=== PATIENT | female | born 1940 | race Caucasian/White ===

== ENCOUNTER 2016-07-27 13:33 | Inpatient (IN) | payer OTHER, MEDICARE ==
[~2016-07-27] VITALS: Ht 154.9 cm; Wt 64.6 kg
[2016-08-09] MEDS ORDERED: SENN8.6T19 PO (14:50)
[2016-08-09] MEDS ORDERED: OMEP40CA2 PO (14:50)
[2016-08-09] MEDS ORDERED: FLUT1INH INH (14:50)
[2016-08-09] MEDS ORDERED: SERT-129 PO (14:50)
[2016-08-09] MEDS ORDERED: VITA100T15 PO (14:50)
[2016-08-09] MEDS ORDERED: LOSA50TA2 PO (14:50)
[2016-08-09] MEDS ORDERED: IPRASOL INH (14:50)
[2016-08-09] MEDS ORDERED: DOXA1TAB35 PO (14:50)
[2016-08-09] MEDS ORDERED: LEVO125T4 PO (14:50)
[2016-08-09] MEDS ORDERED: HYDR-3516 PO (14:50)
[2016-08-09] MEDS ORDERED: CALC1TAB42 PO (14:50)
[2016-08-16 14:10] VITALS: BP 132/63; PULSE 57; RESP 12; TEMP 95.5; O2SAT 98
--- NOTE | 2016-08-17 05:11 | MH ---
cc: GAEL STEWART M.D. Corrected Copy: 08/18/16 DATE OF ADMISSION: 08/17/2016 ADMISSION DIAGNOSIS Left knee osteoarthritis. HISTORY This patient is a 76-year-old female with significant left knee pain. Investigative studies show evidence of extensive arthritis left knee. Despite conservative care the patient is painful and symptomatic. This patient presents for surgical treatment. PAST MEDICAL HISTORY, SOCIAL HISTORY, FAMILY HISTORY, REVIEW OF SYSTEMS See attached notes. PHYSICAL EXAMINATION GENERAL: A 76-year-old female in moderate distress with her left knee. HEENT: Normocephalic, atraumatic. Pupils equal, round, reactive to light and accommodation. Extraocular motions intact. NECK: Supple. CHEST: Clear. HEART: Regular rate and rhythm. ABDOMEN: Soft, nontender with normoactive bowel sounds. MUSCULOSKELETAL EXAMINATION: Left knee pain with range of motion. Mild deformity. Crepitus with range of motion. NEUROLOGIC AND VASCULAR EXAMINATION: Within normal limits. IMPRESSION Osteoarthritis left knee. PLAN Left total knee replacement arthroplasty. CONSENT There are risks with surgery including infection, bleeding, loss of motion, continued pain, need for further surgery, neurologic and vascular injury. The patient understands these issues and wishes to press on with the surgery as outlined above. Gael Stewart MD MCG/SSB /10:46 PM /2:20 PM
[2016-08-17] MEDS ORDERED: EXPAREL PERI-ARTICULAR INJECTION (TOTAL VOL. 60 ML) P-ARTICULR SCH ×2 (07:15)
[2016-08-17] MEDS ORDERED: ceFAZolin 2 GM PREMIX 50 ML IV SCH (07:15)
[2016-08-17] MEDS ORDERED: INSULIN HUMAN REGULAR 1,000 UNITS/10 ML VIAL SQ PRN (07:30)
[2016-08-17] MEDS ORDERED: LACTATED RINGER'S 1000 ML IV SCH (07:30)
[2016-08-17] MEDS ORDERED: SODIUM CHLORID 0.9% 500 ML IV SCH (07:30)
[2016-08-17] MEDS ORDERED: METOPROLOL TARTRATE 25 MG TAB PO PRN (07:30)
[2016-08-17] MEDS: POVIDONE IODINE 7.5% SCRUB 118 ML BOTTLE TOPICAL SCH (07:35)
[2016-08-17 07:41] VITALS: BP 148/63; PULSE 54; RESP 18; TEMP 97.9; O2SAT 98
[2016-08-17 07:44] LABS: APTT (PATIENT) 24.9 SEC (24.3-30.1); PROTHROMBIN TIME - PATIENT 10.6 SEC (9.8-11.6)
[2016-08-17] MEDS: VANCOMYCIN 1000 MG/NS 250 ML (for <70 kg) IV SCH ×4 (07:48→07:56)
[2016-08-17] MEDS ORDERED: BUPIVACAINE LIPOSOME PF 1.3% 20 ML VIAL NERV BLOCK ONE (07:55)
[2016-08-17] MEDS ORDERED: FAMOTIDINE 20 MG/2 ML VIAL ONE (08:13)
[2016-08-17] MEDS ORDERED: MIDAZOLAM HCL 5 MG/5 ML VIAL ONE (08:14)
[2016-08-17] MEDS ORDERED: ACETAMINOPHEN 1000 MG/100 ML VIAL IV ONE (08:14)
[2016-08-17] MEDS ORDERED: fentaNYL CITRATE 250 MCG/5 ML AMP ONE (08:14)
[2016-08-17] MEDS ORDERED: ceFAZolin INJ 1,000 MG VIAL ONE (08:36)
[2016-08-17] MEDS ORDERED: GENTAMICIN SULFATE 80 MG/2 ML VIAL ONE (08:41)
[2016-08-17] MEDS: SODIUM CHLORIDE 0.9% IV SCH ×2 (09:48→12:53)
[2016-08-17] MEDS: TRANEXAMIC ACID IV SCH ×2 (09:48→12:53)
[2016-08-17] MEDS: LACTATED RINGER'S 1000 ML INJ 1,000 ML IV SCH (11:25)
[2016-08-17] MEDS ORDERED: Post-op Orders (for Pharmacy) MISC XX ONE (11:30)
[2016-08-17] MEDS ORDERED: TRANEXAMIC ACID INJ 650 MG in SODIUM CHLORIDE 0.9% INJ 100 ML IV SCH (11:30)
[2016-08-17] MEDS ORDERED: MORPHINE SULFATE 8 MG/ML INJ IM PRN (11:30)
[2016-08-17] MEDS ORDERED: MISCELLANEOUS PHARMACY INFORMATION XX ONE (11:30)
[2016-08-17] MEDS ORDERED: NALOXONE HCL 0.4 MG/ML AMP IV PRN (11:30)
[2016-08-17] MEDS ORDERED: SODIUM CHLORIDE 0.9% FLUSH 5 ML FLUSH IVF PRN (11:30)
[2016-08-17] MEDS ORDERED: MORPHINE SULFATE 30 MG/30 ML PCA IV SCH (11:30)
[2016-08-17] MEDS ORDERED: TEMAZEPAM 15 MG CAP PO PRN (11:30)
[2016-08-17] MEDS ORDERED: MISCELLANEOUS NURSING INFORMATION XX PRN (11:30)
--- NOTE | 2016-08-17 11:32 | PD.OP ---
cc: Mark Rodriguez MD Operative Report Date of Surgery: Aug 17, 2016 Preoperative Diagnosis: Osteoarthritis left knee Postoperative Diagnosis: Same Procedure: Left total knee replacement arthroplasty Anesthesia: Gen. Surgeon: Mark Rodriguez Ocean Fishing Guide(s): DAVID Kapadia Operation and Findings: EBL: 100 cc INDICATION: This patient presents with long-standing arthritis of the knee. Attachment record documents conservative measures. The patient now presents for surgical treatment. NOTE: Leydi Kapadia PA-C was present for the entire surgical procedure as my or first assist registered nurse. In my medical opinion her skill and care was necessary for proper management of this patient. TOURNIQUET TIME: 50 minutes COMPANY: [employer] FEMUR: Size 2, posterior cruciate retaining TIBIA: Size 2, fixed bearing PATELLA: 32 mm POLYETHYLENE INSERT: 11 mm PROCEDURE: This patient was brought the operating room and anesthetized in the supine position. The patient was positioned supine on the table. The tourniquet was placed about the thigh, and the leg was scrubbed with alcohol followed by Hibiclens followed by ChloraPrep and draped sterilely. A timeout was done, and antibiotics were given. After exsanguination the tourniquet was inflated to 250 mmHg. An anterior incision was made and a median parapatellar arthrotomy was performed. The patella was released laterally and subluxed allowing freehand cut of the patella which was then sized. A metal cap was placed over the exposed patellar surface for protection. A pilot boat operator hole was placed in the distal femur allowing a 5 valgus cut removing 10 mm from the distal femur. Anterior posterior and chamfer cuts were made. The posterior stabilize osteotomy was made. The attention was directed to the tibia. Retractors were positioned. The external alignment guide was used allowing the lateral tibia to be used as referencing guide and cut utilizing an oscillating saw taking care to avoid any injury to the surrounding soft tissues. This was sized properly. Trial reduction showed that the insert fit nicely. The patient had range of motion extension 0 flexion 125. A medial release was not necessary. The bony surfaces prepared. On the back table 2 packets of methylmethacrylate were mixed. The components were cemented. Excess cement was removed. The tourniquet let down and hemostasis was controlled. The final plastic insert was inserted. Range of motion was the same as previously noted. A drain was brought through a separate stab incision. The arthrotomy was repaired with interrupted #1 Vicryl suture, subcutaneous tissue 2-0 Vicryl suture and skin with metallic rolf A sterile dressing was applied. Sponge counts, needle counts and instrument counts were all correct. The patient tolerated procedure well and was taken to recovery in satisfactory condition. FINDINGS: This patient had severe arthritis of the lateral compartment with a valgus deformity. 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 The final solution was excellent. Mark Rodriguez MD Aug 17, 2016 11:32
[2016-08-17] MEDS ORDERED: XARE10TA PO (11:34)
[2016-08-17] MEDS ORDERED: OXYC1TAB63 PO (11:34)
[2016-08-17] MEDS ORDERED: MORPHINE SULFATE 4 MG/ML INJ ONE (11:56)
[2016-08-17] MEDS ORDERED: DO NOT ADM ANY ANTICOAGULANT DRUGS XX PRN (12:00)
[2016-08-17] MEDS ORDERED: PROPOFOL 200 MG/20 ML AMP IV ONE (12:00)
[2016-08-17] MEDS ORDERED: ONDANSETRON HCL 4 MG/2 ML VIAL IV PUSH ONE (12:00)
[2016-08-17] MEDS ORDERED: LACTATED RINGER'S 1000 ML INJ 2,000 ML IV ONE (12:00)
[2016-08-17] MEDS ORDERED: NEOSTIGMINE 3 MG/3 ML SYR IV ONE (12:00)
[2016-08-17] MEDS ORDERED: ePHEDrine/NS 25 MG/5 ML SYR IV ONE (12:00)
[2016-08-17] MEDS ORDERED: *morphine SULFATE 8 MG/ML PERIprocedure ONLY ONE (13:03)
--- NOTE | 2016-08-17 13:32 | RADRPT ---
EXAM DATE/TIME: 08/17/2016 12:16 [facility] COMPARISON: No previous studies available for comparison. INDICATIONS : Post op left total knee. MEDICAL HISTORY : None. SURGICAL HISTORY : None. ENCOUNTER: Initial ACUITY: 1 day PAIN SCORE: Non-responsive. LOCATION: Left knee FINDINGS: 2 views left knee. Postoperative appearance of total knee prosthesis. Alignment within normal limits. No evidence of fracture. CONCLUSION: Postoperative appearance of total knee prosthesis. Pravin Bess MD on August 17, 2016 at 13:30 Board Certified Radiologist. This report was verified electronically.
[2016-08-17] MEDS: PCA - TOTAL MG MORPHINE DELIVERED PER SHIFT SCH ×2 (14:00→20:16)
[2016-08-17] MEDS: RESP: ALBUTEROL 2.5 MG/IPRATROPIUM 0.5 MG NEB (SCH) INH ×3 (15:43→23:36)
[2016-08-17 15:45] VITALS: O2SAT 88
[2016-08-17] MEDS: oxyCODONE/ACETAMINOPHEN 5 MG/325 MG TAB PO PRN (15:55)
[2016-08-17 16:00] VITALS: BP 94/44; PULSE 60; RESP 17; TEMP 96; O2SAT 92
[2016-08-17] MEDS ORDERED: CPMMACHINE (17:07)
--- NOTE | 2016-08-17 17:09 | HHI.FF ---
Face to Face Verification Diagnosis: (1) Left knee pain (2) Osteoarthritis of left knee Physical Therapy Gait training, Safety evaluation, Transfer training, bed to chair Knee: Total knee, Protocol: Left, Full weight bearing Left LE Weight Bearing: WB as tolerated Additional Instructions PT 5 days/wk for 2 weeks. WBAT LLE. TKA protocol. Walker as needed. CPM daily, 0-70 with goal of 100 flexion. CKS at night. Nursing RN Days per Week: 3 x Week(s): 1 Dressing Changes: Do not change dressing Additional Instructions Vitals assessment, dressing assessment - do not change unless saturated or signif erythema I have seen patient Mirella Reynolds on 08/17/16. My clinical findings support the need for the requested home health care services because: Limited ability to care for self High risk of falls I certify that my clinical findings support that this patient is homebound because: Post-op weakness Unsteady gait/balance Fatuma Pelletier Aug 17, 2016 17:09
[2016-08-17 19:42] VITALS: BP 99/45; PULSE 74; RESP 16; TEMP 97.3; O2SAT 97
[2016-08-17] MEDS: LOSARTAN 50 MG TAB PO SCH (20:15)
[2016-08-17] MEDS: DOXAZOSIN MESYLATE 2 MG TAB PO SCH (20:15)
[2016-08-17] MEDS: MAGNESIUM HYDROXIDE SUSP 30 ML CUP PO SCH (20:15)
[2016-08-17] MEDS: HYDROCHLOROTHIAZIDE 12.5 MG CAP PO SCH (20:15)
[2016-08-17] MEDS: SENNOSIDES 8.6 MG TAB PO SCH (20:16)
[2016-08-17] MEDS: SODIUM CHLORIDE 0.9% FLUSH 5 ML FLUSH IVF SCH (20:16)
[2016-08-17] MEDS: SERTRALINE HCL 100 MG TAB PO SCH (20:16)
[2016-08-17 20:35] VITALS: O2SAT 98
[2016-08-17] MEDS ORDERED: NON-FORMULARY DRUG (Losartan-Hydrochlorothiazide 1 TAB) PO SCH (21:00)
[2016-08-18] VITALS (8 sets, daily range): BP systolic 107–135; BP diastolic 43–72; PULSE 67–85; RESP 16–20; TEMP 96.2–99.2; O2SAT 95–100
[2016-08-18] MEDS: oxyCODONE/ACETAMINOPHEN 5 MG/325 MG TAB PO PRN ×5 (01:08→18:34)
[2016-08-18] MEDS: RESP: ALBUTEROL 2.5 MG/IPRATROPIUM 0.5 MG NEB (SCH) INH ×6 (03:31→23:53)
[2016-08-18] MEDS: PCA - TOTAL MG MORPHINE DELIVERED PER SHIFT SCH (04:01)
[2016-08-18] MEDS: LEVOTHYROXINE SODIUM 125 MCG TAB PO SCH (04:08)
[2016-08-18] MEDS: LACTATED RINGER'S 1000 ML INJ 1,000 ML IV SCH ×3 (04:08→21:10)
[2016-08-18 05:54] LABS: HEMATOCRIT 31.2 % (35.0-46.0); REVIEW FLAG FINAL
[2016-08-18] MEDS: POVIDONE IODINE 7.5% SCRUB 118 ML BOTTLE TOPICAL SCH (07:15)
--- NOTE | 2016-08-18 07:39 | PD.ORT.PN ---
Subjective Subjective Remarks Doing well this morning. [place] cath already dc'd. Urinating without difficulty. Leg pain slightly worse last few hours as block wore off. No other complaints. Feels 'just fine'. No new CP or SOB. Objective Vitals Vital Signs Date Time Temp Pulse Resp B/P Pulse Ox O2 Delivery O2 Flow Rate FiO2 08/18/16 04:05 98.9 80 19 117/60 97 08/18/16 00:32 96.2 73 18 109/51 96 08/17/16 20:35 98 Nasal Cannula 2.00 08/17/16 20:16 17 08/17/16 19:49 Nasal Cannula 2.00 08/17/16 19:42 97.3 74 16 99/45 97 08/17/16 16:00 96.0 60 17 94/44 92 08/17/16 15:45 88 21 08/17/16 14:33 16 08/17/16 13:55 67 16 118/59 98 Nasal Cannula 2 08/17/16 13:30 65 16 116/55 96 Nasal Cannula 2 08/17/16 13:15 60 16 115/68 95 Nasal Cannula 2 08/17/16 13:00 70 16 125/67 96 Nasal Cannula 2 08/17/16 12:45 60 16 138/66 98 Nasal Cannula 2 08/17/16 12:30 67 16 137/57 98 Nasal Cannula 2 08/17/16 12:15 62 16 139/67 99 Nasal Cannula 2 08/17/16 12:00 60 16 128/66 97 Nasal Cannula 2 08/17/16 11:50 97.8 68 16 136/63 98 Nasal Cannula 2 08/17/16 07:41 97.9 54 18 148/63 98 I/O 08/17/16 08/17/16 08/17/16 08/18/16 08/18/16 08/18/16 07:00 15:00 23:00 07:00 15:00 23:00 Intake Total 1600 ml 845 ml 480 ml Output Total 210 ml 300 ml 660 ml Balance 1390 ml 545 ml -180 ml Intake Oral 240 ml 480 ml IV Total 605 ml Other 1600 ml Output Urine Total 250 ml 600 ml Drainage Total 110 ml 50 ml 60 ml Estimated Blood Loss 100 ml # Bowel Movements 0 0 Result Diagram: 08/18/16 0525 Objective Remarks Sitting up in bed eating breakfast, NAD VSS LLE Left knee dressing c/d/i, drain in place lateral, mild swelling, thigh and calf supple, neg homans +motor at, +sens, +nvi Assessment & Plan Ortho Post Op Day #: 1 Problem List: Assessment and Plan pod#1 s/p L TKA Doing well. 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 PT - WBAT LLE. Walker as needed. CPM 0-60 with goal of 100. Xarelto 10mg qd D/C left knee drain. Hold dressing changes unless saturated. D/C planning, home w [facility] tomorrow. Has all DME already. F2F written. Fatuma Pelletier Aug 18, 2016 07:39
[2016-08-18] MEDS: MAGNESIUM HYDROXIDE SUSP 30 ML CUP PO SCH ×2 (09:54→21:08)
[2016-08-18] MEDS: PANTOPRAZOLE SOD 40 MG DELAYED RELEASE TAB PO SCH (09:54)
[2016-08-18] MEDS: FLUTICASONE 100 MCG/VILANTEROL 25 MCG INHALER INH SCH (09:55)
[2016-08-18] MEDS: SODIUM CHLORIDE 0.9% FLUSH 5 ML FLUSH IVF SCH ×2 (09:57→21:00)
[2016-08-18] MEDS: RIVAROXABAN 10 MG TAB PO SCH (11:42)
[2016-08-18] MEDS: SENNOSIDES 8.6 MG TAB PO SCH (21:08)
[2016-08-18] MEDS: SERTRALINE HCL 100 MG TAB PO SCH (21:09)
[2016-08-18] MEDS: HYDROCHLOROTHIAZIDE 12.5 MG CAP PO SCH (21:09)
[2016-08-18] MEDS: LOSARTAN 50 MG TAB PO SCH (21:09)
[2016-08-18] MEDS: DOXAZOSIN MESYLATE 2 MG TAB PO SCH (21:09)
[2016-08-19 00:24] VITALS: BP 109/52; PULSE 77; RESP 19; TEMP 96; O2SAT 96
[2016-08-19] MEDS: oxyCODONE/ACETAMINOPHEN 5 MG/325 MG TAB PO PRN ×3 (00:25→11:06)
[2016-08-19] MEDS: RESP: ALBUTEROL 2.5 MG/IPRATROPIUM 0.5 MG NEB (SCH) INH ×3 (03:33→11:44)
[2016-08-19] MEDS: LEVOTHYROXINE SODIUM 125 MCG TAB PO SCH (05:13)
[2016-08-19] MEDS: POVIDONE IODINE 7.5% SCRUB 118 ML BOTTLE TOPICAL SCH (07:15)
[2016-08-19 08:00] VITALS: BP 93/43; PULSE 76; RESP 18; TEMP 96.5; O2SAT 93
[2016-08-19 08:48] VITALS: O2SAT 94
--- NOTE | 2016-08-19 08:54 | PD.ORT.PN ---
Subjective Subjective Remarks She continues to do well. No new complaints. Eager to go home. Appetite good. Still urinating well. Very pleasant. No new CP or SOB. Objective Vitals Vital Signs Date Time Temp Pulse Resp B/P Pulse Ox O2 Delivery O2 Flow Rate FiO2 08/19/16 08:48 94 Nasal Cannula 2.00 08/19/16 08:00 96.5 76 18 93/43 93 08/19/16 00:24 96.0 77 19 109/52 96 08/18/16 23:57 96 Nasal Cannula 2.00 08/18/16 20:22 98.6 85 17 135/72 95 08/18/16 15:55 99.2 76 16 125/56 96 08/18/16 11:47 97.2 74 18 133/47 95 I/O 08/18/16 08/18/16 08/18/16 08/19/16 08/19/16 08/19/16 07:00 15:00 23:00 07:00 15:00 23:00 Intake Total 480 ml 240 ml 360 ml 240 ml Output Total 660 ml 140 ml Balance -180 ml 100 ml 360 ml 240 ml Intake Oral 480 ml 240 ml 360 ml 240 ml Output Urine Total 600 ml Drainage Total 60 ml 140 ml # Voids 3 2 2 # Bowel Movements 0 0 0 0 Result Diagram: 08/18/16 0525 Objective Remarks Ambulating to the restroom, NAD VSS LLE Left knee dressing c/d/i, drain removed, site clean, mild swelling, thigh and calf supple, neg homans +motor at, +sens, +nvi Assessment & Plan Ortho Post Op Day #: 2 Problem List: Assessment and Plan pod#2 s/p L TKA Ortho stable. Ok to d/c home w home health care after PT today. PO pain meds as needed. PT - WBAT LLE. Walker as needed. CPM 0-60 with goal of 100. Xarelto 10mg qd Hold dressing changes unless saturated. F/U in 2 weeks as scheduled. Has all DME already. F2F written. Fatuma Pelletier Aug 19, 2016 08:54
--- NOTE | 2016-08-19 08:55 | HHI.DCPOC ---
Discharge Care Plan Diagnosis: (1) Left knee pain (2) Osteoarthritis of left knee Your Health Problems Are: Incision/Drains Swelling Goals to Promote Your Health * To prevent worsening of your condition and complications * To maintain your health at the optimal level Directions to Meet Your Goals Take your medications as prescribed Follow your dietary instruction Follow activity as directed Keep your appointments as scheduled Take your immunizations and boosters as scheduled If your symptoms worsen call your PCP, if no PCP go to Urgent Care Center or Emergency Room Smoking is Dangerous to Your Health. Avoid second hand smoke Call the 24-hour hour crisis hotline for domestic abuse at Fatuma Pelletier Aug 19, 2016 08:55
[2016-08-19] MEDS: FLUTICASONE 100 MCG/VILANTEROL 25 MCG INHALER INH SCH (08:57)
[2016-08-19] MEDS: MAGNESIUM HYDROXIDE SUSP 30 ML CUP PO SCH (08:57)
[2016-08-19] MEDS: SODIUM CHLORIDE 0.9% FLUSH 5 ML FLUSH IVF SCH (08:57)
[2016-08-19] MEDS: PANTOPRAZOLE SOD 40 MG DELAYED RELEASE TAB PO SCH (08:57)
--- NOTE | 2016-08-19 08:58 | HHI.DS ---
Discharge Summary Admission Date Aug 17, 2016 at 06:45 Discharge Date: Aug 19, 2016 Admitting Diagnosis see below Diagnosis: (1) Left knee pain Diagnosis: Principal (2) Osteoarthritis of left knee Diagnosis: Principal Procedures Left total knee arthroplasty Brief History This is a 76 year old female patient with a long history of bilateral knee pain. Imaging studies showed moderate arthritis of both knees. She was treated conservatively for years with steroid injections, viscosupplements and medications. Surgical treatment was eventually recommended. She has the right knee replaced and now presents for the left. CBC/BMP: 08/18/16 0525 Significant Findings Laboratory Tests Test 08/18/16 05:25 Hemoglobin 10.5 GM/DL (11.6-15.3) Hematocrit 31.2 % (35.0-46.0) PE at Discharge Ambulating to the restroom, NAD VSS LLE Left knee dressing c/d/i, drain removed, site clean, mild swelling, thigh and calf supple, neg homans +motor at, +sens, +nvi Hospital Course Surgical treatment was performed on the day of admission without complication. She recovered well in pACU and was transferred to the orthopaedic floor. Pain was controlled with IV and oral medications. DVT prophylaxis was initiated pod# 1. She was compliant with physical therapy, her CPM, and all restrictions. After 2 days she was found to be stable and discharged home with home health care with instruction to continue PT and to pursue a high fiber diet for the next 3-5 days. Pt Condition on Discharge: Stable Discharge Disposition: Disch w/ Home Health Serv Discharge Instructions Diet Instructions: As Tolerated, No Restrictions, High Fiber Diet Activities You Can Perform: Weight Bearing as Breanna Activities to Avoid: Strenuous Activity Additional Activity Instruc.: TKA protocol New Medications: CPM-Continuous Passive Motion Machine (CPM-Continuous Passive Motion Machine) 1 Ea Device 1 EA .ROUTE DIRECTED #1 Ref 0 EA Oxycodone-Acetaminophen (Oxycodone-Acetaminophen) 5-325 mg Tab 1 TAB PO Q4H PRN PAIN LESS THAN 5 ON SCALE #50 TAB Rivaroxaban (Xarelto) 10 Mg Tab 10 MG PO Q24H Prevent Blood Clot #15 TAB Continued Medications: Calcium Carbonate-Cholecalciferol (Calcium 500+D) 500-200 Mg-Unit Tab 1 TAB PO DAILY TAB Cyanocobalamin (Vitamin B12) 100 Mcg Tab Unknown Dose PO DAILY #1 BOTTLE Doxazosin (Doxazosin) 2 Mg Tab 2 MG PO HS #60 Ref 0 TAB Fluticasone-Vilanterol Inh (Breo Ellipta Inh) 100-25 Mcg/Act Inh 1 PUFF INH DAILY Use daily at the same time. #1 Ref 0 INHALER Hydrocodone-Acetaminophen (Hydrocodone-Acetaminophen) 5-325 mg Tab 1 TAB PO Q4H PRN PAIN Ref 0 TAB Ipratropium-Albuterol Neb (Duoneb) 0.5-2.5 Mg/3 Ml Neb 1 NEBULE INH Q4HR NEB SHORTNESS OF BREATH #120 Ref 0 NEBULE Levothyroxine (Levothyroxine) 125 Mcg Tab 125 MCG PO DAILY Thyroid #30 Ref 0 TAB Losartan-Hydrochlorothiazide (Losartan-Hydrochlorothiazide) 50-12.5 Mg Tab 1 TAB PO HS Blood Pressure Management #30 Ref 0 TAB Omeprazole (Omeprazole) 40 Mg Cap 40 MG PO DAILY #30 Ref 0 CAP Sennosides-Docusate Sodium (Senna-S 8.6-50 mg) 1 Tab Tab 1 TAB PO HS Sertraline (Sertraline) 100 Mg Tab 100 MG PO HS #30 Ref 0 TAB Fatuma Pelletier Aug 19, 2016 08:58
[2016-08-19] MEDS: RIVAROXABAN 10 MG TAB PO SCH (11:05)
[2016-08-19 11:50] VITALS: BP 106/64; PULSE 68; RESP 19; TEMP 97.5; O2SAT 100
== END 2016-08-19 14:42 | disposition home or self-care (01) | DRG 470 ==
LOC: HSDI 08-17 06:45 → N06B 08-17 14:24
PROVIDERS: ADMIT Orthopaedic Surgery Orthopaedic Surgery of the Spine; ATTEND Orthopaedic Surgery Orthopaedic Surgery of the Spine
PROC: 0SRD0J9 Replacement of Left Knee Joint with Synthetic Substitute, Cemented, Open Approach (ICD-10-PCS; principal; 2016-08-17 09:16)
DX: M17.12 Unilateral primary osteoarthritis, left knee (principal)
CPT/HCPCS: 73560; 85014; 85018; 85610; 85730; 86850; 86900; 86901; 86920; 94150; 94640; C1776; C9290; J0131; J0690; J1580; J2250; J2270; J2405; J2710; J3010; J3370; J7050; J7120; L1830

== ENCOUNTER → 2016-08-09 | Outpatient (CLI) | payer OTHER ==
[~2016-08-09] MED LIST: CALC1TAB42 PO; CPMMACHINE; DOXA1 PO; DOXA1TAB35 PO; DUONI NEB; FLUT1INH INH; FLUT1INH NEB; HYDR-3516 PO; HYDR-3580 PO; HYZA50TA2 PO; IPRASOL INH; IRON27TA PO; LEVO125T4 PO; LORTA5 PO; LOSA50TA2 PO; OMEP20TA PO; OMEP40CA2 PO; OXYC1TAB63 PO; PRAV80 PO; RIVA10 PO; SENN8.6T19 PO; SERT-129 PO; SERT-132 PO; VITA10002 PO; VITA100T15 PO; XARE10TA PO; Z.0.CPM; Z.0.WALKERFRONT
== END ==
LOC: CPRE 11:39
PROVIDERS: ATTEND Orthopaedic Surgery Orthopaedic Surgery of the Spine
DX: Z01.812 Encounter for preprocedural laboratory examination (principal); M17.11 Unilateral primary osteoarthritis, right knee; Z79.01 Long term (current) use of anticoagulants